=== PATIENT | female | born 2005 | race Two or more races ===

== ENCOUNTER 2025-02-08 05:28 | Inpatient (IN) | payer OTHER ==
[~2025-02-08] VITALS: Ht 165.1 cm; Wt 77.1 kg
[2025-02-08 05:28] VITALS: BP 115/68
[2025-02-08] MEDS ORDERED: RINGERS SOLUTION,LACTATED 1,000 ML IV SCH (05:45)
[2025-02-08 07:30] LABS: URINE APPEARANCE Cloudy; URINE BILIRRUBIN Negative (NEGATIVE); URINE BLOOD Negative; URINE COLOR Dark Yellow; URINE GLUCOSE Negative (NEGATIVE); URINE KETONE Trace (NEGATIVE); URINE LEUKOCYTE Moderate; URINE NITRATE Negative; URINE PROTEIN Trace (NEGATIVE); URINE UROBILINOGEN 1.0 E.U./dl
[2025-02-08 07:33] LABS: BASO % 0.2 % (0.1-1.2); EOS # 0.13 (0.04-0.54); EOS % 1.3 % (0.7-7.0); LYMPH # 2.67 (1.18-3.74); LYMPH % 25.8 % (19.3-53.1); MEAN PLATELET VOLUME 10.20 fl (9.4-12.4); MONO # 0.70 (0.24-0.82); MONO % 6.8 % (4.7-12.5); NEUT # 6.79 (1.56-6.13); NEUT % 65.5 % (34.0-71.1); RED CELL DISTRIBUTION WIDTH 15.5 % (11.6-14.4)
[2025-02-08 07:34] LABS: URINE RBC 3.8 uL (0.0-20.8); URINE WBC 103.0 uL (0.0-23.2)
[2025-02-08 07:46] LABS: INR < 0.93
[2025-02-08] MEDS ORDERED: OXYTOCIN 500 ML IV SCH (08:00)
[2025-02-08 08:06] VITALS: BP 120/66
[2025-02-08 08:19] LABS: URINE BACTERIA > 9821.5 uL (0.0-1933); URINE CAST 0.42 uL (0.0-1.40); URINE EPITHELIAL CELLS > 201.7 uL (0.0-38.8)
[2025-02-08 08:26] LABS: ALT/SGPT 9.0 U/L (12-78); AST/SGOT 10.0 U/L (15-37); BILIRUBIN TOTAL 0.27 mg/dL (0.3-1.2); BUN CREA RATIO 17.0 (7.0-25.0); CREATININE SERUM 0.46 mg/dL (0.55-1.02); GFR 175.0; GLOBULINA 4.0 G/DL (2.4-3.5); GLUCOSE FASTING 77.0 mg/dL (65-100); OSMOLALITY SERUM 280.0 MOSM/KG (275-295)
[2025-02-08] MEDS ORDERED: PROMETHAZINE HCL 50 MG/ML AMPUL IM ONE (09:39)
[2025-02-08] MEDS ORDERED: PROMETHAZINE HCL 50 MG/ML AMPUL IV ONE (09:45)
[2025-02-08] MEDS ORDERED: MORPHINE SULFATE 4 MG/ML VIAL IV ONE (09:45)
[2025-02-08] MEDS ORDERED: ERYTHROMYCIN BASE OPHT 1GM EACH TUBE OP ONE (09:50)
[2025-02-08] MEDS ORDERED: CHLORHEXIDINE GLUCONATE 120 ML BOTTLE TOP ONE (09:50)
[2025-02-08] MEDS ORDERED: OXYTOCIN 20 UNITS/1000ML RL PIGGYBAG IV ONE (09:50)
[2025-02-08] MEDS ORDERED: LIDOCAINE HCL 1% 10ML VIAL ONE (09:50)
[2025-02-08] MEDS ORDERED: CHLORHEXIDINE GLUCONATE 120 ML BOTTLE TOP SCH (10:30)
[2025-02-08] MEDS ORDERED: OXYTOCIN 1,000 ML IV SCH (10:30)
[2025-02-08 13:19] VITALS: BP 106/63
[2025-02-08 16:00] VITALS: BP 100/62
[2025-02-09] VITALS: BP 115/70
[2025-02-09 08:00] VITALS: BP 112/76
[2025-02-09] MEDS ORDERED: DOCUSATE SODIUM 100MG CAP PO SCH (09:19)
[2025-02-09 16:48] VITALS: BP 107/66
[2025-02-10 00:52] VITALS: BP 121/74
[2025-02-10 09:08] VITALS: BP 102/60
[2025-02-10] MEDS ORDERED: NAPR500T14 PO (11:04)
== END 2025-02-10 14:55 | disposition home or self-care (01) | DRG 807 ==
LOC: LDR 05:28 → OB/GYN 05:28
PROVIDERS: ADMIT Obstetrics & Gynecology; ATTEND Obstetrics & Gynecology
PROC: 10E0XZZ Delivery of Products of Conception, External Approach (ICD-10-PCS; principal; 2025-02-08)
PROC: 4A1HXCZ Monitoring of Products of Conception, Cardiac Rate, External Approach (ICD-10-PCS; 2025-02-08)
DX: O80 Encounter for full-term uncomplicated delivery (principal); Z37.0 Single live birth; Z3A.39 39 weeks gestation of pregnancy